=== PATIENT | female | born 1995 | race Caucasian/White ===

== ENCOUNTER 2018-11-27 12:35 | Observation (INO) | payer MEDICAID ==
[~2018-11-27] VITALS: Ht 162.6 cm; Wt 83.9 kg
[2018-11-27] MEDS ORDERED: NIFEdipine 10 MG CAP ONE (13:24)
[2018-11-27] MEDS ORDERED: NIFEdipine 10 MG CAP PO ONE (13:30)
[2018-11-27] MEDS ORDERED: PREN-96 PO (14:01)
== END 2018-11-27 15:20 | disposition home or self-care (01) | DRG 566 ==
LOC: LDRP 12:35
PROVIDERS: ADMIT Specialist; ATTEND Specialist
DX: O40.3XX0 Polyhydramnios, third trimester, not applicable or unspecified (principal); O60.03 Preterm labor without delivery, third trimester; Z3A.29 29 weeks gestation of pregnancy; Z87.891 Personal history of nicotine dependence
CPT/HCPCS: 59025; 76815; 81002; G0378

== ENCOUNTER 2018-12-01 12:05 | Observation (INO) | payer MEDICAID ==
[~2018-12-01] VITALS: Ht 162.6 cm; Wt 83.5 kg
[~2018-12-01 12:05] MED LIST: PREN-96 PO
[2018-12-01] MEDS ORDERED: NIFEdipine 10 MG CAP ONE (12:45)
[2018-12-01] MEDS ORDERED: NIFEdipine 10 MG CAP PO ONE (12:45)
[2018-12-01] MEDS ORDERED: TERBUTALINE SULFATE 1 MG/ML 1ML VIAL SC PRN (13:15)
[2018-12-01] MEDS ORDERED: NIF10C PO (13:23)
[2018-12-01] MEDS ORDERED: BETAMETHASONE ACET (6MG/ML) 5ML VIAL IM ONE (13:30)
== END 2018-12-01 15:55 | disposition home or self-care (01) | DRG 566 ==
LOC: LDRP 12:05
PROVIDERS: ADMIT Obstetrics & Gynecology; ATTEND Obstetrics & Gynecology
DX: O40.3XX0 Polyhydramnios, third trimester, not applicable or unspecified (principal); O60.03 Preterm labor without delivery, third trimester; Z3A.29 29 weeks gestation of pregnancy
CPT/HCPCS: 59025; 76815; 81002; 96372; G0378; J0702; J3105

== ENCOUNTER 2018-12-02 13:00 | Observation (INO) | payer MEDICAID ==
[~2018-12-02] VITALS: Ht 30.5 cm; Wt 0.5 kg
[~2018-12-02 13:00] MED LIST changes: +NIF10C PO
[2018-12-02] MEDS ORDERED: BETAMETHASONE ACET (6MG/ML) 5ML VIAL IM ONE (13:15)
== END 2018-12-02 14:05 | disposition home or self-care (01) | DRG 566 ==
LOC: LDRP 13:00
PROVIDERS: ADMIT Specialist; ATTEND Specialist
DX: O40.3XX0 Polyhydramnios, third trimester, not applicable or unspecified (principal); O60.03 Preterm labor without delivery, third trimester; Z3A.29 29 weeks gestation of pregnancy; Z87.891 Personal history of nicotine dependence
CPT/HCPCS: 59025; 81002; 96372; G0378

== ENCOUNTER 2018-12-03 15:28 | Observation (INO) | payer MEDICAID | END 2018-12-03 16:25 | disposition home or self-care (01) | DRG 566 | LOC: LDRP 15:28 | PROVIDERS: ADMIT Specialist; ATTEND Specialist | DX: O40.3XX0 Polyhydramnios, third trimester, not applicable or unspecified (principal); O60.03 Preterm labor without delivery, third trimester; Z3A.29 29 weeks gestation of pregnancy; Z87.891 Personal history of nicotine dependence | CPT/HCPCS: 59025; 76818; 81002; G0378 ==

== ENCOUNTER 2018-12-07 19:56 | Observation (INO) | payer MEDICAID | END 2018-12-07 20:28 | disposition home or self-care (01) | DRG 563 | LOC: INTOOBSV 19:56 → LDRP 19:56 | PROVIDERS: ADMIT Specialist; ATTEND Specialist | DX: O60.03 Preterm labor without delivery, third trimester (principal); Z3A.30 30 weeks gestation of pregnancy; Z87.891 Personal history of nicotine dependence | CPT/HCPCS: 59025; 81002; G0378 ==

== ENCOUNTER 2018-12-11 13:03 | Observation (INO) | payer MEDICAID | END 2018-12-11 16:30 | disposition home or self-care (01) | DRG 566 | LOC: LDRP 13:03 | PROVIDERS: ADMIT Specialist; ATTEND Specialist | DX: O40.3XX0 Polyhydramnios, third trimester, not applicable or unspecified (principal); O60.03 Preterm labor without delivery, third trimester; Z3A.40 40 weeks gestation of pregnancy; Z87.891 Personal history of nicotine dependence | CPT/HCPCS: 59025; 76818; 81002; G0378 ==

== ENCOUNTER 2018-12-14 19:05 | Observation (INO) | payer MEDICAID ==
[2018-12-14] MEDS ORDERED: TERBUTALINE SULFATE 1 MG/ML 1ML VIAL SC SCH (20:15)
[2018-12-14] MEDS ORDERED: LACTATED RINGER'S 1,000 ML IV ONE (20:30)
[2018-12-14 20:46] LABS: Urine Bacteria FEW /hpf (None Seen); Urine Blood Negative /uL (Negative); Urine Specific Gravity 1.015 (1.001-1.035); Urine WBC <1 /hpf (0 - 5)
== END 2018-12-14 23:00 | disposition home or self-care (01) | DRG 566 ==
LOC: LDRP 19:05
PROVIDERS: ADMIT Specialist; ATTEND Specialist
DX: O40.3XX0 Polyhydramnios, third trimester, not applicable or unspecified (principal); O60.03 Preterm labor without delivery, third trimester; Z3A.31 31 weeks gestation of pregnancy; Z87.891 Personal history of nicotine dependence
CPT/HCPCS: 59025; 76818; 81001; 81002; G0378; J3105

== ENCOUNTER 2018-12-18 15:05 | Observation (INO) | payer MEDICAID ==
[2018-12-18 17:22] LABS: Urine Bacteria FEW /hpf (None Seen); Urine Blood Negative /uL (Negative); Urine Specific Gravity 1.012 (1.001-1.035); Urine WBC 2 /hpf (0 - 5)
== END 2018-12-18 16:16 | disposition home or self-care (01) | DRG 563 ==
LOC: LDRP 15:05
PROVIDERS: ADMIT Obstetrics & Gynecology; ATTEND Obstetrics & Gynecology
DX: O60.03 Preterm labor without delivery, third trimester (principal); O40.3XX0 Polyhydramnios, third trimester, not applicable or unspecified; Z87.891 Personal history of nicotine dependence; Z3A.32 32 weeks gestation of pregnancy
CPT/HCPCS: 59025; 76818; 81001; 81002; 84156; G0378

== ENCOUNTER 2018-12-20 15:05 | Observation (INO) | payer MEDICAID | END 2018-12-20 16:20 | disposition home or self-care (01) | DRG 563 | LOC: LDRP 15:05 | PROVIDERS: ADMIT Obstetrics & Gynecology; ATTEND Obstetrics & Gynecology | DX: O60.03 Preterm labor without delivery, third trimester (principal); O26.893 Other specified pregnancy related conditions, third trimester; H53.8 Other visual disturbances; Z3A.32 32 weeks gestation of pregnancy; Z87.891 Personal history of nicotine dependence | CPT/HCPCS: 59025; 81002; G0378 ==

== ENCOUNTER 2018-12-24 14:07 | Observation (INO) | payer MEDICAID | END 2018-12-24 15:10 | disposition home or self-care (01) | DRG 566 | LOC: LDRP 14:07 | PROVIDERS: ADMIT Specialist; ATTEND Specialist | DX: O40.3XX0 Polyhydramnios, third trimester, not applicable or unspecified (principal); O60.03 Preterm labor without delivery, third trimester; Z3A.32 32 weeks gestation of pregnancy; Z87.891 Personal history of nicotine dependence | CPT/HCPCS: 76818; G0378; 59025; 81002 ==

== ENCOUNTER 2018-12-27 14:05 | Observation (INO) | payer MEDICAID ==
[~2018-12-27] VITALS: Ht 162.6 cm; Wt 79.4 kg
[2018-12-27] MEDS ORDERED: TERBUTALINE SULFATE 1 MG/ML 1ML VIAL SC SCH (14:45)
== END 2018-12-27 15:40 | disposition home or self-care (01) | DRG 566 ==
LOC: LDRP 14:05
PROVIDERS: ADMIT Obstetrics & Gynecology; ATTEND Obstetrics & Gynecology
DX: O40.3XX0 Polyhydramnios, third trimester, not applicable or unspecified (principal); O60.03 Preterm labor without delivery, third trimester; Z3A.33 33 weeks gestation of pregnancy; Z87.891 Personal history of nicotine dependence
CPT/HCPCS: 59025; 81002; 96372; G0378; J3105

== ENCOUNTER 2018-12-31 11:08 | Observation (INO) | payer MEDICAID ==
[~2018-12-31] VITALS: Ht 162.6 cm; Wt 87.1 kg
[2018-12-31] MEDS ORDERED: TERBUTALINE SULFATE 5 MG TAB PO PRN (12:45)
[2018-12-31] MEDS ORDERED: TERBUTALINE SULFATE 1 MG/ML 1ML VIAL SC SCH (13:00)
== END 2018-12-31 15:40 | disposition home or self-care (01) | DRG 563 ==
LOC: LDRP 11:08
PROVIDERS: ADMIT Specialist; ATTEND Specialist
DX: O60.03 Preterm labor without delivery, third trimester (principal); Z3A.33 33 weeks gestation of pregnancy; Z87.891 Personal history of nicotine dependence
CPT/HCPCS: 59025; 76818; 81002; 96372; G0378; J3105

== ENCOUNTER 2019-01-03 10:14 | Observation (INO) | payer MEDICAID | END 2019-01-03 12:10 | disposition home or self-care (01) | DRG 563 | LOC: LDRP 10:14 | PROVIDERS: ADMIT Specialist; ATTEND Specialist | DX: O60.03 Preterm labor without delivery, third trimester (principal); O40.3XX0 Polyhydramnios, third trimester, not applicable or unspecified; Z3A.34 34 weeks gestation of pregnancy; Z87.891 Personal history of nicotine dependence | CPT/HCPCS: 59025; 76818; 81002; G0378 ==

== ENCOUNTER 2019-01-07 14:42 | Observation (INO) | payer MEDICAID ==
[~2019-01-07] VITALS: Ht 162.6 cm; Wt 89.4 kg
[2019-01-07] MEDS: TERBUTALINE SULFATE 1 MG/ML 1ML VIAL SC SCH ×2 (16:08→17:11)
== END 2019-01-07 17:40 | disposition home or self-care (01) | DRG 563 ==
LOC: LDRP 14:42
PROVIDERS: ADMIT Specialist; ATTEND Specialist
DX: O60.03 Preterm labor without delivery, third trimester (principal); O40.3XX0 Polyhydramnios, third trimester, not applicable or unspecified; Z3A.34 34 weeks gestation of pregnancy; Z87.891 Personal history of nicotine dependence
CPT/HCPCS: 59025; 76818; 81002; 96372; G0378; J3105; 96365; 96366

== ENCOUNTER 2019-01-10 19:28 | Observation (INO) | payer MEDICAID ==
[~2019-01-10] VITALS: Ht 162.6 cm; Wt 88.0 kg
[2019-01-10] MEDS: TERBUTALINE SULFATE 1 MG/ML 1ML VIAL SC SCH ×2 (20:07→20:23)
[2019-01-10] MEDS: TERBUTALINE SULFATE 1 MG/ML 1ML VIAL SC ONE ×2 (20:07→20:29)
== END 2019-01-10 21:14 | disposition home or self-care (01) | DRG 563 ==
LOC: LDRP 19:28
PROVIDERS: ADMIT Obstetrics & Gynecology; ATTEND Obstetrics & Gynecology
DX: O60.03 Preterm labor without delivery, third trimester (principal); Z3A.35 35 weeks gestation of pregnancy
CPT/HCPCS: 59025; 76818; 81002; 96372; G0378; J3105

== ENCOUNTER 2019-01-14 14:05 | Observation (INO) | payer MEDICAID | END 2019-01-14 15:25 | disposition home or self-care (01) | DRG 563 | LOC: LDRP 14:05 | PROVIDERS: ADMIT Specialist; ATTEND Specialist | DX: O60.03 Preterm labor without delivery, third trimester (principal); O40.3XX0 Polyhydramnios, third trimester, not applicable or unspecified; Z3A.35 35 weeks gestation of pregnancy; Z87.891 Personal history of nicotine dependence | CPT/HCPCS: 59025; 76818; 81002; G0378 ==

== ENCOUNTER 2019-01-17 14:04 | Observation (INO) | payer MEDICAID | END 2019-01-17 15:35 | disposition home or self-care (01) | DRG 566 | LOC: LDRP 14:04 | PROVIDERS: ADMIT Specialist; ATTEND Specialist | DX: O40.3XX0 Polyhydramnios, third trimester, not applicable or unspecified (principal); O60.03 Preterm labor without delivery, third trimester; Z3A.36 36 weeks gestation of pregnancy; Z87.891 Personal history of nicotine dependence | CPT/HCPCS: 59025; 76818; 81002; G0378 ==

== ENCOUNTER 2019-01-22 14:00 | Observation (INO) | payer MEDICAID ==
[~2019-01-22] VITALS: Ht 162.6 cm; Wt 89.4 kg
== END 2019-01-22 15:50 | disposition home or self-care (01) | DRG 566 ==
LOC: LDRP 14:00
PROVIDERS: ADMIT Specialist; ATTEND Specialist
DX: O40.3XX0 Polyhydramnios, third trimester, not applicable or unspecified (principal); Z3A.37 37 weeks gestation of pregnancy; Z87.891 Personal history of nicotine dependence
CPT/HCPCS: 59025; 76818; 81002; G0378

== ENCOUNTER 2019-01-24 13:44 | Observation (INO) | payer MEDICAID ==
[~2019-01-24 13:44] MED LIST changes: -NIF10C PO
== END 2019-01-24 15:55 | disposition home or self-care (01) | DRG 566 ==
LOC: LDRP 13:44
PROVIDERS: ADMIT Specialist; ATTEND Specialist
DX: O40.3XX0 Polyhydramnios, third trimester, not applicable or unspecified (principal); Z3A.37 37 weeks gestation of pregnancy; Z87.891 Personal history of nicotine dependence
CPT/HCPCS: 59025; 76818; 81002; G0378

== ENCOUNTER 2019-01-29 14:51 | Observation (INO) | payer MEDICAID ==
[~2019-01-29] VITALS: Ht 162.6 cm; Wt 89.4 kg
== END 2019-01-29 15:42 | disposition home or self-care (01) | DRG 566 ==
LOC: LDRP 14:51
PROVIDERS: ADMIT Obstetrics & Gynecology; ATTEND Obstetrics & Gynecology
DX: O40.3XX0 Polyhydramnios, third trimester, not applicable or unspecified (principal); Z3A.38 38 weeks gestation of pregnancy
CPT/HCPCS: 59025; 76818; 81002; G0378

== ENCOUNTER 2019-01-31 14:06 | Observation (INO) | payer MEDICAID | END 2019-01-31 16:15 | disposition home or self-care (01) | DRG 566 | LOC: LDRP 14:06 | PROVIDERS: ADMIT Obstetrics & Gynecology; ATTEND Obstetrics & Gynecology | DX: O40.3XX0 Polyhydramnios, third trimester, not applicable or unspecified (principal); Z3A.38 38 weeks gestation of pregnancy; Z87.891 Personal history of nicotine dependence | CPT/HCPCS: 59025; 76818; 81002; G0378 ==

== ENCOUNTER 2019-02-05 14:06 | Observation (INO) | payer MEDICAID | END 2019-02-05 17:25 | disposition home or self-care (01) | DRG 566 | LOC: LDRP 14:06 | PROVIDERS: ADMIT Specialist; ATTEND Specialist | DX: O26.893 Other specified pregnancy related conditions, third trimester (principal); R19.09 Other intra-abdominal and pelvic swelling, mass and lump; Z3A.39 39 weeks gestation of pregnancy; Z87.891 Personal history of nicotine dependence | CPT/HCPCS: 59025; 76818; 81002; G0378 ==

== ENCOUNTER 2019-02-05 16:00 | Emergency (ER) | payer MEDICAID ==
[~2019-02-05] VITALS: Ht 162.6 cm; Wt 91.2 kg
[2019-02-05 16:38] VITALS: BP 121/66
[2019-02-05] MEDS ORDERED: LIDOCAINE 1% HCL (LOCAL ANESTH.) INJ 20ML MDV IJ ONE (22:00)
== END 2019-02-05 22:42 | disposition home or self-care (01) ==
LOC: ER 16:00
DX: O26.893 Other specified pregnancy related conditions, third trimester (principal); N75.0 Cyst of Bartholin's gland; Z3A.39 39 weeks gestation of pregnancy
CPT/HCPCS: 56420; 99283; J2001

== ENCOUNTER 2019-02-09 13:58 | Observation (INO) | payer MEDICAID | END 2019-02-09 16:15 | disposition home or self-care (01) | DRG 566 | LOC: LDRP 13:58 | PROVIDERS: ADMIT Obstetrics & Gynecology; ATTEND Obstetrics & Gynecology | DX: O40.3XX0 Polyhydramnios, third trimester, not applicable or unspecified (principal); Z3A.39 39 weeks gestation of pregnancy | CPT/HCPCS: 59025; 76818; 81002; G0378 ==

== ENCOUNTER 2019-02-11 10:57 | Observation (INO) | payer MEDICAID | END 2019-02-11 13:05 | disposition left against medical advice (07) | DRG 566 | LOC: LDRP 10:57 | PROVIDERS: ADMIT Specialist; ATTEND Specialist | DX: O40.3XX0 Polyhydramnios, third trimester, not applicable or unspecified (principal); Z3A.39 39 weeks gestation of pregnancy | CPT/HCPCS: 76818; G0378 ==

== ENCOUNTER 2019-02-12 11:10 | Observation (INO) | payer MEDICAID | END 2019-02-12 11:50 | disposition home or self-care (01) | DRG 566 | LOC: LDRP 11:10 | PROVIDERS: ADMIT Obstetrics & Gynecology; ATTEND Obstetrics & Gynecology | DX: O40.3XX0 Polyhydramnios, third trimester, not applicable or unspecified (principal); O26.853 Spotting complicating pregnancy, third trimester; O48.0 Post-term pregnancy; Z3A.40 40 weeks gestation of pregnancy; O62.9 Abnormality of forces of labor, unspecified | CPT/HCPCS: 59025; 81002; G0378 ==

== ENCOUNTER 2019-02-14 10:15 | Observation (INO) | payer MEDICAID | END 2019-02-14 11:47 | disposition home or self-care (01) | DRG 566 | LOC: LDRP 10:15 | PROVIDERS: ADMIT Specialist; ATTEND Specialist | DX: O40.3XX0 Polyhydramnios, third trimester, not applicable or unspecified (principal); O48.0 Post-term pregnancy; Z3A.40 40 weeks gestation of pregnancy | CPT/HCPCS: 59025; 76818; 81002; G0378 ==

== ENCOUNTER 2019-02-16 11:57 | Observation (INO) | payer MEDICAID | END 2019-02-16 13:20 | disposition home or self-care (01) | DRG 566 | LOC: LDRP 11:57 | PROVIDERS: ADMIT Obstetrics & Gynecology; ATTEND Obstetrics & Gynecology | DX: O40.3XX0 Polyhydramnios, third trimester, not applicable or unspecified (principal); O48.0 Post-term pregnancy; Z3A.40 40 weeks gestation of pregnancy; Z87.891 Personal history of nicotine dependence | CPT/HCPCS: 59025; 76818; 81002; G0378 ==

== ENCOUNTER 2019-02-17 09:48 | Emergency (ER) | payer MEDICAID ==
[~2019-02-17] VITALS: Ht 162.6 cm; Wt 93.4 kg
[2019-02-17 10:10] VITALS: BP 124/85
== END 2019-02-17 11:05 | disposition home or self-care (01) ==
LOC: ER 09:48
DX: O34.83 Maternal care for other abnormalities of pelvic organs, third trimester (principal); N75.0 Cyst of Bartholin's gland; Z3A.40 40 weeks gestation of pregnancy

== ENCOUNTER 2019-02-18 08:00 | Inpatient (IN) | payer MEDICAID | END 2019-02-22 13:50 | disposition home or self-care (01) | LOC: LDRP 08:00 | PROC: 10D00Z1 Extraction of Products of Conception, Low, Open Approach (ICD-10-PCS; principal; 2019-02-19 09:01) | DX: O48.0 Post-term pregnancy (principal); N75.0 Cyst of Bartholin's gland; Z37.0 Single live birth; N75.1 Abscess of Bartholin's gland; Z3A.40 40 weeks gestation of pregnancy; O62.0 Primary inadequate contractions; O36.63X0 Maternal care for excessive fetal growth, third trimester, not applicable or unspecified ==

== ENCOUNTER 2020-09-14 13:22 | Observation (INO) | payer MEDICAID | END 2020-09-14 14:05 | disposition home or self-care (01) | LOC: LDRP 13:22 | PROVIDERS: ADMIT Obstetrics & Gynecology; ATTEND Obstetrics & Gynecology | DX: O26.892 Other specified pregnancy related conditions, second trimester (principal); R10.31 Right lower quadrant pain; Z87.891 Personal history of nicotine dependence; Z3A.20 20 weeks gestation of pregnancy | CPT/HCPCS: 59025; 81002; G0378 ==

== ENCOUNTER → 2020-09-15 | Outpatient (CLI) | payer MEDICAID ==
[2020-09-15 12:52] LABS: Basophils # (auto) 0 10 ^3/uL (0-0.2); Basophils % (auto) 0.4 % (0.0-2.0); Eosinophils # (auto) 0.1 10 ^3/uL (0-0.8); Eosinophils % (auto) 1.3 % (0.0-7.0); Hematocrit 40.4 % (36.0-46.0); Hemoglobin 13.8 g/dL (12.2-16.2); Lymphocytes # (auto) 1.4 10 ^3/uL (0.4-5.4); Lymphocytes % (auto) 12.3 % (10.0-50.0); Mean Corpuscular Hemoglobin 29.5 pg (28.0-32.0); Mean Corpuscular Hgb Conc. 34.2 g/dL (32.0-36.0); Mean Corpuscular Volume 86.2 fL (80.0-100.0); Monocytes # (auto) 0.5 10 ^3/uL (0-1.3); Monocytes % (auto) 4.4 % (0.0-12.0); Neutrophils % (auto) 81.6 % (37.0-80.0); Platelet Count (auto) 278 10^3/uL (140-450); Red Blood Cells 4.69 10^6/uL (4.0-5.20); Red Cell Distribution Width 13.9 % (11.8-14.3)
[2020-09-16 05:08] LABS: RPR Non Reactive (Non Reactive)
== END | disposition home or self-care (01) ==
LOC: LAB 11:57
PROVIDERS: ATTEND Obstetrics & Gynecology
DX: Z34.80 Encounter for supervision of other normal pregnancy, unspecified trimester (principal); Z36.9 Encounter for antenatal screening, unspecified; Z31.430 Encounter of female for testing for genetic disease carrier status for procreative management; Z72.51 High risk heterosexual behavior; Z3A.00 Weeks of gestation of pregnancy not specified
CPT/HCPCS: 36415; 83036; 84112; 84144; 84702; 85025; 86592; 86703; 86762; 86850; 86900; 86901; 87340

== ENCOUNTER → 2020-12-23 | Outpatient (CLI) | payer MEDICAID ==
[2020-12-23 11:00] LABS: Basophils # (auto) 0 10 ^3/uL (0-0.2); Basophils % (auto) 0.3 % (0.0-2.0); Eosinophils # (auto) 0.1 10 ^3/uL (0-0.8); Eosinophils % (auto) 1.1 % (0.0-7.0); Hematocrit 37.9 % (36.0-46.0); Hemoglobin 12.9 g/dL (12.2-16.2); Lymphocytes # (auto) 1.8 10 ^3/uL (0.4-5.4); Lymphocytes % (auto) 15.2 % (10.0-50.0); Mean Corpuscular Hemoglobin 28.1 pg (28.0-32.0); Mean Corpuscular Volume 82.7 fL (80.0-100.0); Monocytes # (auto) 0.8 10 ^3/uL (0-1.3); Monocytes % (auto) 6.6 % (0.0-12.0); Neutrophils # (auto) 8.9 10 ^3/uL (1.6-8.6); Neutrophils % (auto) 76.8 % (37.0-80.0); Nucleated Red Blood Cells % 0.2 %; Platelet Count (auto) 281 10^3/uL (140-450); Red Blood Cells 4.59 10^6/uL (4.0-5.20); Red Cell Distribution Width 14.8 % (11.8-14.3); White Blood Cell 11.5 10^3/uL (4.4-10.8)
[2020-12-24 08:06] LABS: RPR Non Reactive (Non Reactive)
== END | disposition home or self-care (01) ==
LOC: LAB 10:24
PROVIDERS: ATTEND Obstetrics & Gynecology
DX: Z34.83 Encounter for supervision of other normal pregnancy, third trimester (principal); Z3A.38 38 weeks gestation of pregnancy
CPT/HCPCS: 36415; 85025; 86592

== ENCOUNTER 2021-01-02 20:48 | Observation (INO) | payer MEDICAID ==
[~2021-01-02] VITALS: Ht 30.5 cm; Wt 0.5 kg
[2021-01-02] MEDS ORDERED: ONDANSETRON HCL 4 MG/2 ML VIAL IV ONE (21:45)
[2021-01-02] MEDS ORDERED: LACTATED RINGER'S 1,000 ML IV SCH (21:45)
[2021-01-02] MEDS: TERBUTALINE SULFATE 1 MG/ML 1ML VIAL SC SCH ×2 (22:40→23:05)
[2021-01-02 22:45] LABS: Basophils # (auto) 0 10 ^3/uL (0-0.2); Basophils % (auto) 0.2 % (0.0-2.0); Eosinophils # (auto) 0 10 ^3/uL (0-0.8); Eosinophils % (auto) 0.1 % (0.0-7.0); Hematocrit 43.1 % (36.0-46.0); Hemoglobin 14.4 g/dL (12.2-16.2); Lymphocytes # (auto) 0.4 10 ^3/uL (0.4-5.4); Lymphocytes % (auto) 2.3 % (10.0-50.0); Mean Corpuscular Hemoglobin 27.6 pg (28.0-32.0); Mean Corpuscular Hgb Conc. 33.3 g/dL (32.0-36.0); Mean Corpuscular Volume 82.9 fL (80.0-100.0); Monocytes # (auto) 0.7 10 ^3/uL (0-1.3); Monocytes % (auto) 3.9 % (0.0-12.0); Neutrophils # (auto) 17.2 10 ^3/uL (1.6-8.6); Neutrophils % (auto) 93.5 % (37.0-80.0); Nucleated Red Blood Cells % 0.1 %; Platelet Count (auto) 257 10^3/uL (140-450); Red Cell Distribution Width 14.7 % (11.8-14.3); White Blood Cell 18.4 10^3/uL (4.4-10.8)
[2021-01-02 22:58] LABS: Albumin 2.8 g/dL (3.4-5.0); Calcium 8.9 mg/dL (8.5-10.1)
[2021-01-02 23:03] LABS: Bilirubin, Total 0.4 mg/dL (0.2-1.0); Total Protein 6.9 g/dL (6.4-8.2)
[2021-01-02 23:18] LABS: Urine Bacteria NONE SEEN /hpf (None Seen); Urine Blood Negative /uL (Negative); Urine Mucus FEW (None Seen); Urine Specific Gravity 1.033 (1.001-1.035); Urine WBC 4 /hpf (0 - 5)
[2021-01-03] MEDS ORDERED: NIFEdipine 10 MG CAP PO ONE
[2021-01-03] MEDS ORDERED: NIF10C PO (01:28)
== END 2021-01-03 01:47 | disposition home or self-care (01) ==
LOC: LDRP 20:48
PROVIDERS: ADMIT Obstetrics & Gynecology; ATTEND Obstetrics & Gynecology
DX: O21.2 Late vomiting of pregnancy (principal); Z20.822 Contact with and (suspected) exposure to COVID-19; O99.613 Diseases of the digestive system complicating pregnancy, third trimester; K52.9 Noninfective gastroenteritis and colitis, unspecified; Z3A.37 37 weeks gestation of pregnancy
CPT/HCPCS: 36415; 59025; 80053; 81001; 81002; 85025; 87426; 94760; 96361; 96372; 96374; G0378; J2405; J3105; U0003; 96360

== ENCOUNTER 2021-01-15 04:23 | Inpatient (IN) | payer MEDICAID ==
[2021-01-15] VITALS (15 sets, daily range): BP systolic 84–105; BP diastolic 40–56
[~2021-01-15] VITALS: Ht 162.6 cm; Wt 95.7 kg
[~2021-01-15 04:23] MED LIST changes: +NIF10C PO
[2021-01-15] MEDS ORDERED: SODIUM CITR/CITRIC ACID ORAL SOLN 30 ML PO ONE (05:00)
[2021-01-15] MEDS ORDERED: METOCLOPRAMIDE HCL 5MG/ml INJ 2ml VIAL IV ONE (05:00)
[2021-01-15] MEDS ORDERED: ceFAZolin 1GM/50ML 50 ML IV ONE (05:00)
[2021-01-15] MEDS ORDERED: LACTATED RINGER'S 1,000 ML IV ONE (05:00)
[2021-01-15 05:29] LABS: Basophils # (auto) 0 10 ^3/uL (0-0.2); Basophils % (auto) 0.3 % (0.0-2.0); Eosinophils # (auto) 0.2 10 ^3/uL (0-0.8); Eosinophils % (auto) 1.3 % (0.0-7.0); Hemoglobin 12.5 g/dL (12.2-16.2); Lymphocytes # (auto) 2.1 10 ^3/uL (0.4-5.4); Lymphocytes % (auto) 13.9 % (10.0-50.0); Mean Corpuscular Hemoglobin 27.7 pg (28.0-32.0); Mean Corpuscular Hgb Conc. 33.8 g/dL (32.0-36.0); Mean Corpuscular Volume 81.9 fL (80.0-100.0); Monocytes # (auto) 1.1 10 ^3/uL (0-1.3); Monocytes % (auto) 7.3 % (0.0-12.0); Neutrophils # (auto) 11.5 10 ^3/uL (1.6-8.6); Neutrophils % (auto) 77.2 % (37.0-80.0); Platelet Count (auto) 282 10^3/uL (140-450); Red Blood Cells 4.52 10^6/uL (4.0-5.20); Red Cell Distribution Width 15.3 % (11.8-14.3); White Blood Cell 14.9 10^3/uL (4.4-10.8)
[2021-01-15 05:41] LABS: Urine Amorphous Crystal MOD /hpf (None Seen); Urine Bacteria MANY /hpf (None Seen); Urine Blood 2+ /uL (Negative); Urine Specific Gravity 1.015 (1.001-1.035); Urine WBC 3914 /hpf (0 - 5); Urine WBC Clumps PRESENT /hpf (None Seen)
[2021-01-15 05:46] LABS: INR 0.93 (0.9-1.15); Partial Thromboplastin Time 29.1 sec (23.0-31.2)
[2021-01-15 05:49] LABS: Albumin 2.4 g/dL (3.4-5.0); Calcium 8.6 mg/dL (8.5-10.1); Potassium 3.7 mmol/L (3.5-5.1)
[2021-01-15 05:53] LABS: Bilirubin, Total 0.3 mg/dL (0.2-1.0)
[2021-01-15 05:53] LABS: Alcohol, Urine < 3.0 mg/dL (0-10); Amphetamine Screen, Urine NEGATIVE (NEGATIVE); Barbiturate Scree,Urine NEGATIVE (NEGATIVE); Benzodiazephine Screen, Urine NEGATIVE (NEGATIVE); Cannabinoid Screen, Urine NEGATIVE (NEGATIVE); Cocaine Screen, Urine NEGATIVE (NEGATIVE); Opiate Scree,Urine NEGATIVE (NEGATIVE); Phencyclidine Screen, Urine NEGATIVE (NEGATIVE)
[2021-01-15] MEDS: LACTATED RINGER'S 1,000 ML IV SCH ×3 (06:01→23:35)
[2021-01-15] MEDS ORDERED: SUCCINYLCHOLINE CHLORIDE 20 MG/ML 10ML VIAL IV ONE (07:05)
[2021-01-15] MEDS ORDERED: TETRACAINE 1% INJ 2 ML VIAL IJ ONE (07:05)
[2021-01-15] MEDS ORDERED: ONDANSETRON HCL 4 MG/2 ML VIAL ONE (07:07)
[2021-01-15] MEDS ORDERED: SODIUM CHLORIDE LOCK 10 ML ONE ×2 (07:07→08:15)
[2021-01-15] MEDS ORDERED: MORPHINE SULF(PF) 0.5MG/ML 10ML VIAL ONE (07:07)
[2021-01-15] MEDS ORDERED: MIDAZOLAM HCL 1MG/1ML-2 ML VIAL ONE ×2 (07:07→07:33)
[2021-01-15] MEDS ORDERED: fentaNYL CITRATE 100 MCG/2 ML VL ONE (07:07)
[2021-01-15] MEDS ORDERED: oxyTOCIN 10 UNIT/ML 10ML VIAL ONE (07:08)
[2021-01-15] MEDS ORDERED: BUPIVACAINE/DEXTROSE MPF 0.75% 2 ML AMP IT ONE (07:08)
[2021-01-15] MEDS ORDERED: EPINEPHrine HCL 1 MG/1 ML AMP ONE (07:08)
[2021-01-15] MEDS ORDERED: ceFAZolin 1GM/50ML 50 ML IV SCH ×2 (08:15→21:00)
[2021-01-15] MEDS ORDERED: GUM (CHEWING) 1 GUM CHEW CHEW ONE (08:15)
[2021-01-15] MEDS ORDERED: LACT. RINGERS/OXYTOCIN 20UNITS 1,000 ML IV ONE (08:15)
[2021-01-15] MEDS ORDERED: ePHEDrine SULFATE 50 MG/ML AMP ONE (08:15)
[2021-01-15] MEDS ORDERED: MORPHINE SULF INJ 2 MG/ML SYRINGE 1ML IV PRN ×2 (08:15→08:45)
[2021-01-15] MEDS ORDERED: ONDANSETRON HCL 4 MG/2 ML VIAL IV PRN (08:15)
[2021-01-15] MEDS ORDERED: fentaNYL CITRATE 100 MCG/2 ML VL IV PRN (08:45)
[2021-01-15] MEDS ORDERED: HYDROmorphone HCL 2 MG/ML VL IV PRN ×2 (08:45→21:30)
[2021-01-15] MEDS ORDERED: NALOXONE HCL 0.4 MG/ML VIAL IV PRN (08:45)
[2021-01-15] MEDS ORDERED: METOCLOPRAMIDE HCL 5MG/ml INJ 2ml VIAL IV PRN (08:45)
[2021-01-15] MEDS ORDERED: KETOROLAC TROMETH 30 MG/ML 1ML VIAL IV ONE (08:45)
[2021-01-15] MEDS ORDERED: ACETAMINOPHEN IV 1000 MG/100ML (10MG/ML) IV ONE (19:30)
[2021-01-15 21:51] LABS: Basophils # (auto) 0 10 ^3/uL (0-0.2); Basophils % (auto) 0.1 % (0.0-2.0); Eosinophils # (auto) 0 10 ^3/uL (0-0.8); Hematocrit 35.6 % (36.0-46.0); Hemoglobin 12.1 g/dL (12.2-16.2); Lymphocytes # (auto) 1.3 10 ^3/uL (0.4-5.4); Lymphocytes % (auto) 6.3 % (10.0-50.0); Mean Corpuscular Hemoglobin 27.8 pg (28.0-32.0); Mean Corpuscular Hgb Conc. 33.9 g/dL (32.0-36.0); Mean Corpuscular Volume 82.1 fL (80.0-100.0); Monocytes # (auto) 1.4 10 ^3/uL (0-1.3); Monocytes % (auto) 6.4 % (0.0-12.0); Neutrophils # (auto) 18.6 10 ^3/uL (1.6-8.6); Neutrophils % (auto) 87.2 % (37.0-80.0); Nucleated Red Blood Cells % 0.3 %; Platelet Count (auto) 286 10^3/uL (140-450); Red Blood Cells 4.34 10^6/uL (4.0-5.20); Red Cell Distribution Width 15.5 % (11.8-14.3); White Blood Cell 21.3 10^3/uL (4.4-10.8)
[2021-01-15] MEDS: ceFAZolin 1GM/50ML 50 ML IV SCH (23:13)
[2021-01-16] VITALS (11 sets, daily range): BP systolic 87–108; BP diastolic 36–69
[2021-01-16 04:06] LABS: RPR Non Reactive (Non Reactive)
[2021-01-16] MEDS: ceFAZolin 1GM/50ML 50 ML IV SCH ×3 (06:49→22:44)
[2021-01-16 07:09] LABS: Basophils # (auto) 0.1 10 ^3/uL (0-0.2); Basophils % (auto) 0.6 % (0.0-2.0); Eosinophils # (auto) 0.1 10 ^3/uL (0-0.8); Eosinophils % (auto) 0.4 % (0.0-7.0); Hematocrit 34.9 % (36.0-46.0); Hemoglobin 11.5 g/dL (12.2-16.2); Lymphocytes % (auto) 13.8 % (10.0-50.0); Mean Corpuscular Hemoglobin 27.6 pg (28.0-32.0); Mean Corpuscular Hgb Conc. 32.9 g/dL (32.0-36.0); Mean Corpuscular Volume 83.9 fL (80.0-100.0); Monocytes # (auto) 1.3 10 ^3/uL (0-1.3); Monocytes % (auto) 8.7 % (0.0-12.0); Neutrophils # (auto) 11.3 10 ^3/uL (1.6-8.6); Neutrophils % (auto) 76.5 % (37.0-80.0); Platelet Count (auto) 244 10^3/uL (140-450); Red Blood Cells 4.16 10^6/uL (4.0-5.20); Red Cell Distribution Width 15.7 % (11.8-14.3); White Blood Cell 14.8 10^3/uL (4.4-10.8)
[2021-01-16] MEDS ORDERED: BISACODYL 10 MG RECT SUPP PR PRN (08:15)
[2021-01-16] MEDS ORDERED: LACTATED RINGER'S 1,000 ML IV SCH (08:15)
[2021-01-16] MEDS: HYDROcodone-ACET 5/325MG TAB PO PRN ×3 (10:23→21:08)
[2021-01-16] MEDS: DOCUSATE SOD 100 MG CAP PO SCH ×2 (10:24→22:26)
[2021-01-16] MEDS: LACTATED RINGER'S 1,000 ML IV SCH ×3 (13:00→22:27)
[2021-01-16] MEDS: SIMETHICONE 80 MG CHEWABLE TABLET PO SCH ×2 (18:00→22:26)
[2021-01-16] MEDS: IBUPROFEN 800 MG TAB PO PRN (22:26)
[2021-01-17 03:07] VITALS: BP 110/62
[2021-01-17] MEDS: LACTATED RINGER'S 1,000 ML IV SCH ×3 (05:00→21:00)
[2021-01-17] MEDS: HYDROcodone-ACET 5/325MG TAB PO PRN ×4 (05:49→18:42)
[2021-01-17] MEDS: SIMETHICONE 80 MG CHEWABLE TABLET PO SCH ×4 (05:49→21:45)
[2021-01-17 07:00] VITALS: BP_SYST 120; BP_DIAS 68; BP_DIAS 88
[2021-01-17] MEDS: ceFAZolin 1GM/50ML 50 ML IV SCH ×4 (07:06→23:09)
[2021-01-17] MEDS: DOCUSATE SOD 100 MG CAP PO SCH ×2 (10:08→21:45)
[2021-01-17 11:00] VITALS: BP 111/56
[2021-01-17 15:00] VITALS: BP 113/64
[2021-01-17 18:30] VITALS: BP 106/63
[2021-01-17 23:15] VITALS: BP 112/76
[2021-01-17] MEDS: IBUPROFEN 800 MG TAB PO PRN (23:32)
[2021-01-18 02:44] VITALS: BP 95/57
[2021-01-18] MEDS: LACTATED RINGER'S 1,000 ML IV SCH (05:00)
[2021-01-18] MEDS: SIMETHICONE 80 MG CHEWABLE TABLET PO SCH (05:38)
[2021-01-18] MEDS: ceFAZolin 1GM/50ML 50 ML IV SCH (06:55)
[2021-01-18 07:20] VITALS: BP 105/57
[2021-01-18] MEDS: DOCUSATE SOD 100 MG CAP PO SCH (09:40)
[2021-01-18] MEDS: HYDROcodone-ACET 5/325MG TAB PO PRN (09:50)
== END 2021-01-18 11:32 | disposition home or self-care (01) | DRG 540 ==
LOC: LDRP 04:23
PROVIDERS: ADMIT Specialist; ATTEND Obstetrics & Gynecology
PROC: 0UL70CZ Occlusion of Bilateral Fallopian Tubes with Extraluminal Device, Open Approach (ICD-10-PCS; 2021-01-15)
PROC: 10D00Z1 Extraction of Products of Conception, Low, Open Approach (ICD-10-PCS; principal; 2021-01-15 07:18)
DX: O99.344 Other mental disorders complicating childbirth (principal); F43.23 Adjustment disorder with mixed anxiety and depressed mood; O21.0 Mild hyperemesis gravidarum; Z37.0 Single live birth; O34.211 Maternal care for low transverse scar from previous cesarean delivery; Z30.2 Encounter for sterilization; O99.52 Diseases of the respiratory system complicating childbirth; J45.909 Unspecified asthma, uncomplicated
CPT/HCPCS: 36415; 59025; 80053; 80307; 81001; 81002; 85025; 85610; 85730; 86592; 86850; 86900; 86901; 94760; 94762; 96360; 96361; G0378; J0131; J0171; J0330; J0690; J2250; J2405; J2590